=== PATIENT | male | born 2000 | race African-American/Black ===

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

== ENCOUNTER 2018-05-19 21:54 | Emergency (ER) | payer OTHER ==
[~2018-05-19] VITALS: Ht 182.9 cm; Wt 90.0 kg
[2018-05-19] MEDS ORDERED: PREDNISONE 20MG TABLET PO STA (23:17)
[2018-05-19] MEDS ORDERED: IPRATROPIUM BROMIDE (0.02%) 0.5MG/2.5ML NEB HHN STA (23:17)
[2018-05-19] MEDS ORDERED: ALBUTEROL (0.083%) 2.5MG/3ML NEB HHN STA (23:17)
[2018-05-20] MEDS ORDERED: IPRATROPIUM/ALBUTEROL 0.5-3(2.5)MG/3ML NEB ONE (01:16)
[2018-05-20] MEDS ORDERED: ALBUTEROL (0.5%) 2.5MG/0.5ML NEB HHN ONE (01:16)
[2018-05-20 01:55] VITALS: BP 124/64
== END 2018-05-20 02:44 | disposition home or self-care (01) ==
LOC: ER 21:54
DX: J45.901 Unspecified asthma with (acute) exacerbation (principal)
CPT/HCPCS: 94640; 99283; J7512; J7611; J7620

== ENCOUNTER 2020-09-14 12:22 | Emergency (ER) | payer OTHER ==
[~2020-09-14] VITALS: Ht 193 cm; Wt 125.0 kg
[2020-09-14] MEDS ORDERED: BACITRACIN ZINC OINT UDPKT TOP ONE (13:00)
[2020-09-14] MEDS ORDERED: ACETAMINOPHEN 325MG TABLET PO ONE (13:00)
[2020-09-14] MEDS ORDERED: TETANUS, DIPHTHERIA, PERTUSSIS VAC/PF 0.5ML (>7YR OLD) IM ONE (13:00)
[2020-09-14 14:28] VITALS: BP 128/56
== END 2020-09-14 14:31 | disposition home or self-care (01) ==
LOC: ER 12:22
DX: S81.011A Laceration without foreign body, right knee, initial encounter (principal); K21.9 Gastro-esophageal reflux disease without esophagitis; J45.909 Unspecified asthma, uncomplicated; W25.XXXA Contact with sharp glass, initial encounter; Y93.89 Activity, other specified; Y92.018 Other place in single-family (private) house as the place of occurrence of the external cause
CPT/HCPCS: 73560; 90471; 90715; 99283

== ENCOUNTER 2022-02-09 23:48 | Emergency (ER) | payer MEDICAID ==
[~2022-02-09] VITALS: Ht 195.6 cm; Wt 105.0 kg
[2022-02-10] VITALS: BP 160/109
[2022-02-10] MEDS ORDERED: ACETAMINOPHEN 325MG TABLET PO STA (00:24)
[2022-02-10] MEDS ORDERED: IBUP-2029 MT (01:29)
== END 2022-02-10 01:56 | disposition home or self-care (01) ==
LOC: ER 23:48
DX: M94.0 Chondrocostal junction syndrome [Tietze] (principal); F41.9 Anxiety disorder, unspecified; K21.9 Gastro-esophageal reflux disease without esophagitis; J45.909 Unspecified asthma, uncomplicated
CPT/HCPCS: 71045; 93005; 99283

== ENCOUNTER 2022-12-04 23:00 | Emergency (ER) | payer MEDICAID, OTHER ==
[~2022-12-04] VITALS: Ht 198.1 cm; Wt 141.0 kg
[~2022-12-04 23:00] MED LIST changes: +IBUP-2029 MT; +MONT-46 PO; -MONT10TA21 PO
[2022-12-04] MEDS ORDERED: IBUPROFEN 400MG TABLET PO ONE (23:45)
[2022-12-04] MEDS ORDERED: CEFTRIAXONE SODIUM 500 MG/VIAL IM ONE (23:45)
[2022-12-05 00:24] LABS: CLARITY URINE CLEAR (CLEAR); COLOR URINE YELLOW (YELLOW); KETONES URINE NEGATIVE (NEGATIVE); LEUKOCYTE ESTERASE URINE NEGATIVE (NEGATIVE); NITRITE URINE NEGATIVE (NEGATIVE); OCCULT BLOOD URINE NEGATIVE (NEGATIVE); PROTEIN URINE NEGATIVE (NEGATIVE); SPECIFIC GRAVITY URINE 1.013 (1.005-1.030); UROBILINOGEN URINE 0.2 E.U./dL (0.2-1.0)
[2022-12-05 01:29] LABS: BASOPHILS % 0.4 % (0.0-2.0); EOSINOPHILS % 0.4 % (0.0-5.0); HEMATOCRIT. 44.6 % (42.0-52.0); HEMOGLOBIN. 15.2 g/dL (14.0-18.0); LYMPHOCYTES % 34.8 % (20.0-50.0); MEAN CORPUSCULAR HEMOGLOBIN 28.3 pg (28.0-32.0); MEAN CORPUSCULAR VOLUME 83.1 fL (80.0-94.0); MEAN PLATELET VOLUME 8.1 fl (7.4-10.4); MONOCYTES % 4.9 % (2.0-8.0); NEUTROPHILS % 59.5 % (40.0-76.0); PLATELET 253 x1000/uL (130-400); RED BLOOD CELL COUNT 5.37 mill/uL (4.7-6.1); RED CELL DISTRIBUTION WIDTH 12.9 % (11.6-14.6)
[2022-12-05 01:34] LABS: CHLORIDE 106 mEq/L (98-107)
[2022-12-05] MEDS ORDERED: DOXY100T2 MT (04:21)
[2022-12-05] MEDS ORDERED: IBUP-2028 MT (04:22)
[2022-12-05 04:40] VITALS: BP 127/75
[2022-12-07 04:07] LABS: NEISSERIA GONORRHOEAE NAA Negative (Negative)
== END 2022-12-05 04:41 | disposition home or self-care (01) ==
LOC: ER 23:00
DX: R07.89 Other chest pain (principal); N50.811 Right testicular pain
CPT/HCPCS: 36415; 71045; 76870; 80053; 81003; 83880; 84484; 85025; 85379; 87491; 87591; 93005; 93976; 96372; 99285; J0696